=== PATIENT | male | born 1975 | race Caucasian/White ===

== ENCOUNTER 2018-06-04 11:21 | Emergency (ER) | payer OTHER ==
[2018-06-04 11:37] VITALS: BP 117/78; PULSE 61; TEMP 98.7; BMI 23.5
--- NOTE | 2018-06-04 11:59 | PDOC ---
History of Present Illness - General Chief Complaint: Chest Pain Stated Complaint: CHEST PAIN, LT ARM NUMBNESS Time Seen by Provider: 06/04/18 11:59 - History of Present Illness Initial Comments: 06/04/18 12:31 Mr. Silva is a 42 yo male w/ no significant pmh who presents for evaluation of 2 month history of left hand parasthesias and 1 week history of left pleuritic chest pain. Pain is "internal" and is exacerbated when he takes a deep breath intermittently. Patient reports he has also had dizziness and headache upon waking up for the last month. Describes the hand parasthesias as left thumb to 2nd digit. Denies any associated pain or trauma to the area. The patient denies shortness of breath. Denies fever, chills, nausea, vomit, diarrhea and constipation. Denies dysuria, frequency, urgency and hematuria. Past History - Past Medical History Allergies/Adverse Reactions: Allergies Allergy/AdvReac Type Severity Reaction Status Date / Time No Known Drug Allergies Allergy Verified 12/07/15 18:23 Home Medications: Ambulatory Orders Azithromycin [Zithromax 250mg Tablets -] 250 mg PO UTDICT #6 tab 06/04/18 Anemia: No Asthma: No Cancer: No Cardiac Disorders: No CVA: No COPD: No CHF: No Dementia: No Diabetes: No GI Disorders: No Disorders: No HTN: No Hypercholesterolemia: No Liver Disease: No Seizures: No Thyroid Disease: No - Immunization History Immunization Up to Date: Yes - Suicide/Smoking/Psychosocial Hx Smoking Status: No Smoking History: Never smoked Have you smoked in the past 12 months: No Number of Cigarettes Smoked Daily: 0 Hx Alcohol Use: No Drug/Substance Use Hx: No Substance Use Type: Alcohol Hx Substance Use Treatment: No Review of Systems - Review of Systems Comments:: 06/04/18 12:34 GENERAL/CONSTITUTIONAL: No fever or chills. No weakness. HEAD, EYES, EARS, NOSE AND THROAT: No change in vision. No ear pain or discharge. No sore throat. CARDIOVASCULAR: +Chest pain as described. No shortness of breath RESPIRATORY: No cough, wheezing, or hemoptysis. GASTROINTESTINAL: No nausea, vomiting, diarrhea or constipation. GENITOURINARY: No dysuria, frequency, or change in urination. MUSCULOSKELETAL: No joint or muscle swelling or pain. No neck or back pain. SKIN: No rash NEUROLOGIC: +L hand parasthesias as described. Headache/dizziness upon waking up. No loss of consciousness or change in strength ENDOCRINE: No increased thirst. No abnormal weight change HEMATOLOGIC/LYMPHATIC: No anemia, easy bleeding, or history of blood clots. ALLERGIC/IMMUNOLOGIC: No hives or skin allergy. *Physical Exam - Vital Signs Last Vital Signs Temp Pulse Resp BP Pulse Ox 98.7 F 61 17 117/78 100 06/04/18 11:34 06/04/18 11:34 06/04/18 11:34 06/04/18 11:34 06/04/18 11:34 - Physical Exam Comments: 06/04/18 12:34 GENERAL: Awake, alert, and fully oriented, in no acute distress HEAD: No signs of trauma, normocephalic, atraumatic EYES: PERRLA, EOMI, sclera anicteric, conjunctiva clear ENT: Auricles normal inspection, hearing grossly normal, nares patent, oropharynx clear without exudates. Moist mucosa NECK: Normal ROM, supple, no lymphadenopathy, JVD, or masses LUNGS: No distress, speaks full sentences, clear to auscultation bilaterally HEART: Regular rate and rhythm, normal S1 and S2, no murmurs, rubs or gallops, peripheral pulses normal and equal bilaterally. ABDOMEN: Soft, nontender, normoactive bowel sounds. No guarding, no rebound. No masses EXTREMITIES: Normal inspection, Normal range of motion, no edema. No clubbing or cyanosis. NEUROLOGICAL: Cranial nerves II through XII grossly intact. Normal speech, normal gait, no focal sensorimotor deficits SKIN: Warm, Dry, normal turgor, no rashes or lesions noted. Moderate Sedation - Procedure Monitoring Vital Signs: Procedure Monitoring Vital Signs Temperature 98.7 F 06/04/18 11:34 Pulse Rate 61 06/04/18 11:34 Respiratory Rate 17 06/04/18 11:34 Blood Pressure 117/78 06/04/18 11:34 O2 Sat by Pulse Oximetry (%) 100 06/04/18 11:34 ED Treatment Course - LABORATORY CBC & Chemistry Diagram: 06/04/18 13:23 06/04/18 13:23 Medical Decision Making - Medical Decision Making 06/04/18 12:46 Mr. Silva is a 42 yo male w/ no significant pmh who presents for evaluation of symptoms concerning for cardiac process vs. strain vs. neurological process. Workup started accordingly w/ labs as below and EKG. EKG regular rate, regular rhythm, normal access, normal interval, no ST elevations or depressions. Grossly normal EKG. 06/04/18 14:13 Patient noted to have early right lower lobe infiltrates vs. density on CXR. CT ordered for confirmation. 06/04/18 14:19 CT significant for small infiltration w/out concern for mass. ABX written. Labs grossly wnl. No other acute process identified. Discharging to home for further outpatient f/u. Laboratory Results - last 24 hr 06/04/18 06/04/18 13:23 13:23 WBC 7.4 RBC 4.49 Hgb 14.0 Hct 38.9 MCV 86.6 MCH 31.2 MCHC 36.0 H RDW 13.1 Plt Count 195 MPV 8.9 Absolute Neuts (auto) 4.8 Neutrophils % 65.8 Lymphocytes % 20.3 Monocytes % 10.1 Eosinophils % 3.3 Basophils % 0.5 Nucleated RBC % 0 Sodium 139 Potassium 3.5 Chloride 104 Carbon Dioxide 28 Anion Gap 6 L BUN 8 Creatinine 0.7 Creat Clearance w eGFR > 60 Random Glucose 96 Calcium 8.6 Total Bilirubin 0.3 AST 17 ALT 35 Alkaline Phosphatase 71 Creatine Kinase 154 Troponin I < 0.02 Total Protein 7.6 Albumin 3.9 *DC/Admit/Observation/Transfer Diagnosis at time of Disposition: Pneumonia Qualifiers: Pneumonia type: due to unspecified organism Laterality: unspecified laterality Lung location: unspecified part of lung Qualified Code(s): J18.9 - Pneumonia, unspecified organism - Discharge Dispostion Disposition: HOME - Prescriptions Prescriptions: Azithromycin [Zithromax 250mg Tablets -] 250 mg PO UTDICT #6 tab - Referrals Referrals: Gianna Foley MD [Primary Care Provider] - - Patient Instructions Printed Discharge Instructions: DI for Atypical Chest Pain Additional Instructions: You were evaluated today in the ER for your chest pain. We performed a chest xray as well as a chest CT which showed concern for a pneumonia. We sent a prescription to your pharmacy for antibiotics. Please take all medications as proscribed. Follow-up with primary care provider later this week for further evaluation. Return to ER if any exacerbation of pain, fever, chills, or other concerning symptoms. - Post Discharge Activity
--- NOTE | 2018-06-04 12:22 | PDOC ---
Attending Attestation - HPI HPI: 06/04/18 13:31 42 yo m with no pmh presents with a 1 week history of pleuritic chest pain. Denies coughs or congestion. He also reports a 1 month history of dizziness when waking up in the morning and a 2 month history of numbness in left first and second digit. Patient states he comes in today for persistent chest pain. Denies headache and back pain. - Physicial Exam PE: GENERAL: Awake, alert, and fully oriented, in no acute distress HEAD: No signs of trauma EYES: PERRLA, EOMI, sclera anicteric, conjunctiva clear NECK: Normal ROM, supple, no lymphadenopathy, JVD, or masses LUNGS: Breath sounds equal, clear to auscultation bilaterally. No wheezes, and no crackles HEART: Regular rate and rhythm, normal S1 and S2, no murmurs, rubs or gallops ABDOMEN: Soft, nontender. No guarding, no rebound. No masses EXTREMITIES: Normal range of motion, no edema. No clubbing or cyanosis. No cords, erythema, or tenderness NEUROLOGICAL: (+)Decreased sensation of first and second finger of left hand. Normal speech, normal gait SKIN: Warm, Dry, normal turgor, no rashes or lesions noted. <Rohan Valente - Last Filed: 06/04/18 13:34> - Resident Resident Name: Saurabh Cornell - ED Attending Attestation I have performed the following: I have examined & evaluated the patient, The case was reviewed & discussed with the resident, I agree w/resident's findings & plan, Exceptions are as noted - Medical Decision Making CXR significant for consolidation. CT chest obtained to further evaluate, as he has no symptoms of pna. No signs of mass. Will DC home. <Agnes Delvalle - Last Filed: 06/04/18 17:46> Attestations - Attestations Documentation prepared by Rohan Valente, acting as medical technologist microbiology for Agnes Delvalle MD. <Rohan Valente - Last Filed: 06/04/18 13:34>
[2018-06-04 13:36] LABS: BASO % 0.5 % (0-2.0); EOS % 3.3 % (0-4.5); HEMATOCRIT 38.9 % (35.4-49); LYMPH % 20.3 % (8-40); MCH 31.2 pg (25.7-33.7); MEAN CELL VOLUME 86.6 fl (80-96); MEAN PLT VOLUME 8.9 fl (7.5-11.1); MONO % 10.1 % (3.8-10.2); NEUT % 65.8 % (42.8-82.8); PLATELET COUNT 195 K/MM3 (134-434); RBC 4.49 M/mm3 (4.00-5.60); RDW 13.1 % (11.9-15.9); WHITE BLOOD COUNT 7.4 K/mm3 (4.0-10.0)
[2018-06-04 14:01] LABS: ALBUMIN 3.9 g/dl (3.4-5.0); ALK PHOS 71 U/L (45-117); ANION GAP 6 MMOL/L (8-16); BILIRUBIN,TOTAL 0.3 mg/dL (0.2-1); BLOOD UREA NITROGEN 8 mg/dL (7-18); CALCIUM 8.6 mg/dL (8.5-10.1); CHLORIDE 104 mmol/L (98-107); CO2 28 mmol/L (21-32); CREATININE 0.7 mg/dL (0.55-1.3); GLUCOSE,RANDOM 96 mg/dL (74-106); POTASSIUM 3.5 mmol/L (3.5-5.1); SGOT/AST 17 U/L (15-37); SGPT/ALT 35 U/L (13-61); SODIUM 139 mmol/L (136-145); TOT PROT 7.6 g/dl (6.4-8.2)
--- NOTE | 2018-06-04 17:08 | EKG ---
Test Reason : Blood Pressure : / mmHG Vent. Rate : 061 BPM Atrial Rate : 061 BPM P-R Int : 196 ms QRS Dur : 104 ms QT Int : 372 ms P-R-T Axes : 037 029 026 degrees QTc Int : 374 ms NORMAL SINUS RHYTHM NORMAL ECG NO PREVIOUS ECGS AVAILABLE Confirmed by LUCY QUINTANA MD ([id number]) on 06/04/2018 5:08:30 PM Referred By: Confirmed By:LUCY QUINTANA MD
== END 2018-06-04 16:15 | disposition home or self-care (01) ==
LOC: JER 11:21
DX: J18.9 Pneumonia, unspecified organism (principal)
CPT/HCPCS: 36415; 71046-TC-FY; 71250-TC; 80053; 82550; 82553; 84484; 85025; 93005; 93010; 99282-25